=== PATIENT | female | born 1965 | race African-American/Black ===

== ENCOUNTER 2022-10-01 16:29 | Inpatient (IN) | payer MEDICARE, MEDICAID ==
[~2022-10-01] VITALS: Ht 167.6 cm; Wt 96.2 kg
[~2022-10-01 16:29] MED LIST: AMOX1TAB16 MT; SULF1TAB48 MT
[2022-10-01] MEDS ORDERED: SODIUM CHLORIDE 0.9% 1000ML BAG (SEPSIS BOLUS) IV ONE (18:15)
[2022-10-01] MEDS ORDERED: VANCOMYCIN 1G PREMIX 200 ML IV ONE (18:15)
[2022-10-01] MEDS ORDERED: PIPERACILLIN/TAZ 3.375G PREMIX 50 ML IV ONE (18:15)
[2022-10-01] MEDS ORDERED: MORPHINE SULFATE 4 MG/ML CPJ (NOT FOR IM USE) IV STA (18:31)
[2022-10-01] MEDS ORDERED: ONDANSETRON HCL 4MG/2ML INJ IV STA (18:31)
[2022-10-01 21:20] LABS: CLARITY URINE CLOUDY (CLEAR); COLOR URINE DARK YELLOW (YELLOW); KETONES URINE NEGATIVE (NEGATIVE); LEUKOCYTE ESTERASE URINE 1+ (NEGATIVE); NITRITE URINE NEGATIVE (NEGATIVE); OCCULT BLOOD URINE 1+ (NEGATIVE); PH URINE 6.5 (4.5-8.0); PROTEIN URINE 2+ (NEGATIVE); SPECIFIC GRAVITY URINE 1.018 (1.005-1.030)
[2022-10-01 22:14] LABS: BASOPHILS % 0.6 % (0.0-2.0); EOSINOPHILS % 1.6 % (0.0-5.0); HEMATOCRIT. 35.3 % (36.0-48.0); HEMOGLOBIN. 11.3 g/dL (12.0-16.0); LYMPHOCYTES % 11.8 % (20.0-50.0); MEAN CORPUSCULAR HEMOGLOBIN 28.5 pg (28.0-32.0); MEAN CORPUSCULAR VOLUME 89.3 fL (81.0-99.0); MONOCYTES % 7.3 % (2.0-8.0); NEUTROPHILS % 78.7 % (40.0-76.0); PLATELET 452 x1000/uL (130-400); RED BLOOD CELL COUNT 3.95 mill/uL (4.2-5.4); RED CELL DISTRIBUTION WIDTH 15.4 % (11.6-14.6)
[2022-10-01] MEDS ORDERED: LEVOFLOXACIN 250MG TABLET PO ONE (22:15)
[2022-10-01] MEDS ORDERED: MORPHINE SULFATE 4 MG/ML CPJ (NOT FOR IM USE) IV ONE (22:15)
[2022-10-01] MEDS ORDERED: FLUCONAZOLE 50MG TABLET PO ONE (22:15)
[2022-10-01] MEDS ORDERED: FLUCONAZOLE 150MG TABLET PO NR (22:15)
[2022-10-01] MEDS ORDERED: ONDANSETRON HCL 4MG/2ML INJ IM ONE (22:15)
[2022-10-01 22:19] LABS: CHLORIDE 109 mEq/L (98-107)
[2022-10-01 23:39] VITALS: BP 162/86; PULSE 78; RESP 20; TEMP 98.3
[2022-10-01 23:51] VITALS: BP 162/86; PULSE 89; RESP 27; TEMP 98.3
[2022-10-02] VITALS: PULSE 78; RESP 17
[2022-10-02] MEDS ORDERED: BACLOFEN 10MG TABLET PO SCH (00:45)
[2022-10-02] MEDS ORDERED: NALOXONE HCL 0.4MG/ML VIAL IV PRN (00:45)
[2022-10-02] MEDS: GABAPENTIN 300MG CAPSULE PO SCH ×4 (01:03→21:19)
[2022-10-02 01:10] VITALS: BP 113/67; PULSE 100; RESP 18
[2022-10-02] MEDS: HYDROCODONE/ACETAMINOPHEN 5/325MG TABLET PO PRN ×3 (01:51→16:11)
[2022-10-02] MEDS ORDERED: BACLOFEN 10MG TABLET PO NR (02:45)
[2022-10-02 04:00] VITALS: PULSE 85; RESP 14; TEMP 97.4
[2022-10-02 04:47] VITALS: BP 105/58; PULSE 79; RESP 12
[2022-10-02] MEDS ORDERED: LIDOCAINE HCL 1% 10 MG/ML 10ML VIAL ONE (08:39)
[2022-10-02] MEDS ORDERED: LACTULOSE 20G/30ML UDC PO NR (09:00)
[2022-10-02] MEDS: TRAZODONE HCL 50MG TABLET PO SCH (09:19)
[2022-10-02] MEDS ORDERED: POVIDONE-IODINE 10% TOPICAL SOLN 240ML TOP ONE (10:45)
[2022-10-02] MEDS ORDERED: NA PHOS,M-B/NA PHOS,DI-BA ENEMA 118ML PR ONE (11:45)
[2022-10-02] MEDS: SERTRALINE HCL 25MG TABLET PO SCH (16:09)
[2022-10-02] MEDS: LEVOFLOXACIN 500MG TABLET PO SCH (16:12)
[2022-10-02] MEDS: BACLOFEN 10MG TABLET PO SCH ×2 (16:13→21:19)
[2022-10-02] MEDS: AMPICILLIN SOD/SULBACTAM NA 3 G in SODIUM CHLORIDE 0.9% 100 ML IV SCH ×2 (16:16→18:36)
[2022-10-02 20:23] VITALS: BP 117/82; PULSE 98; RESP 14; TEMP 98
[2022-10-03] VITALS (7 sets, daily range): BP systolic 109–132; BP diastolic 34–89; PULSE 74–94; RESP 14–24; TEMP 97.8–98.3; O2SAT 98
[2022-10-03] MEDS: MENTHOL/LANOLIN/CALAMINE/ZN OX OINT 71GM TOP SCH ×2 (00:23→13:04)
[2022-10-03] MEDS: AMPICILLIN SOD/SULBACTAM NA 3 G in SODIUM CHLORIDE 0.9% 100 ML IV SCH ×2 (00:34→05:55)
[2022-10-03] MEDS: BACLOFEN 10MG TABLET PO SCH ×3 (01:08→13:06)
[2022-10-03] MEDS: HYDROCODONE/ACETAMINOPHEN 5/325MG TABLET PO PRN (03:34)
[2022-10-03] MEDS: GABAPENTIN 300MG CAPSULE PO SCH ×2 (06:10→13:06)
[2022-10-03 07:59] LABS: BASOPHILS % 0.6 % (0.0-2.0); EOSINOPHILS % 3.2 % (0.0-5.0); HEMATOCRIT. 31.7 % (36.0-48.0); HEMOGLOBIN. 10.5 g/dL (12.0-16.0); LYMPHOCYTES % 15.1 % (20.0-50.0); MEAN CORPUSCULAR HEMOGLOBIN 29.6 pg (28.0-32.0); MEAN CORPUSCULAR VOLUME 89.3 fL (81.0-99.0); MEAN PLATELET VOLUME 7.4 fl (7.4-10.4); MONOCYTES % 10.6 % (2.0-8.0); NEUTROPHILS % 70.5 % (40.0-76.0); PLATELET 365 x1000/uL (130-400); RED BLOOD CELL COUNT 3.55 mill/uL (4.2-5.4); RED CELL DISTRIBUTION WIDTH 14.9 % (11.6-14.6)
[2022-10-03 08:10] LABS: CHLORIDE 110 mEq/L (98-107)
[2022-10-03] MEDS ORDERED: GABA-532 MT (08:10)
[2022-10-03] MEDS ORDERED: BACL20TA PO (08:10)
[2022-10-03] MEDS: TRAZODONE HCL 50MG TABLET PO SCH (08:28)
[2022-10-03] MEDS: SERTRALINE HCL 25MG TABLET PO SCH (08:28)
[2022-10-03] MEDS ORDERED: POLY17PO3 MT ×2 (09:43)
[2022-10-03] MEDS: LEVOFLOXACIN 500MG TABLET PO SCH (13:04)
== END 2022-10-03 13:55 | disposition home health service (06) | DRG 698 ==
LOC: ER 16:29 → EDBEDREQ 22:22 → EDBEDREQTM 22:22 → 3WST 10-02 00:10
PROVIDERS: ADMIT Internal Medicine; ATTEND Internal Medicine
PROC: 05HY33Z Insertion of Infusion Device into Upper Vein, Percutaneous Approach (ICD-10-PCS; principal; 2022-10-02)
PROC: B54MZZA Ultrasonography of Right Upper Extremity Veins, Guidance (ICD-10-PCS; 2022-10-02)
DX: T83.518A Infection and inflammatory reaction due to other urinary catheter, initial encounter (principal); A41.9 Sepsis, unspecified organism; R65.20 Severe sepsis without septic shock; E44.1 Mild protein-calorie malnutrition; G82.20 Paraplegia, unspecified; N39.0 Urinary tract infection, site not specified; L97.422 Non-pressure chronic ulcer of left heel and midfoot with fat layer exposed; I73.9 Peripheral vascular disease, unspecified; K56.41 Fecal impaction; F17.210 Nicotine dependence, cigarettes, uncomplicated; Z20.822 Contact with and (suspected) exposure to COVID-19; R23.4 Changes in skin texture; I10 Essential (primary) hypertension; L89.150 Pressure ulcer of sacral region, unstageable; L89.890 Pressure ulcer of other site, unstageable; K80.20 Calculus of gallbladder without cholecystitis without obstruction; K21.9 Gastro-esophageal reflux disease without esophagitis; Z79.899 Other long term (current) drug therapy; Z74.01 Bed confinement status; Z68.34 Body mass index [BMI] 34.0-34.9, adult; Z87.440 Personal history of urinary (tract) infections; Y83.9 Surgical procedure, unspecified as the cause of abnormal reaction of the patient, or of later complication, without mention of misadventure at the time of the procedure; Y92.89 Other specified places as the place of occurrence of the external cause
CPT/HCPCS: 36415; 36573; 71045; 73620; 74176; 80048; 80053; 81003; 82040; 82378; 83605; 83880; 84134; 84145; 84484; 85025; 87106; 87426; 93005; 93923; 99285; C1725; J0295; J2270; J2405; J3490; J7030; J7050

== ENCOUNTER 2022-10-09 12:46 | Inpatient (IN) | payer MEDICARE, MEDICAID ==
[~2022-10-09] VITALS: Ht 167.6 cm; Wt 118.8 kg
[~2022-10-09 12:46] MED LIST changes: +BACL20TA PO; +GABA-532 MT; +POLY17PO3 MT
[2022-10-09 12:49] VITALS: O2SAT 98
[2022-10-09] MEDS ORDERED: PIPERACILLIN/TAZ 3.375G PREMIX 50 ML IV ONE (14:15)
[2022-10-09] MEDS ORDERED: VANCOMYCIN 1G PREMIX 200 ML IV ONE (14:15)
[2022-10-09] MEDS ORDERED: SODIUM CHLORIDE 0.9% 1000ML BAG (SEPSIS BOLUS) IV ONE (14:15)
[2022-10-09 15:33] LABS: CLARITY URINE CLEAR (CLEAR); COLOR URINE YELLOW (YELLOW); KETONES URINE NEGATIVE (NEGATIVE); LEUKOCYTE ESTERASE URINE NEGATIVE (NEGATIVE); NITRITE URINE NEGATIVE (NEGATIVE); OCCULT BLOOD URINE NEGATIVE (NEGATIVE); PROTEIN URINE NEGATIVE (NEGATIVE); SPECIFIC GRAVITY URINE 1.016 (1.005-1.030); UROBILINOGEN URINE 0.2 E.U./dL (0.2-1.0)
[2022-10-09 16:20] LABS: BASOPHILS % 0.6 % (0.0-2.0); EOSINOPHILS % 1.2 % (0.0-5.0); HEMATOCRIT. 35.2 % (36.0-48.0); HEMOGLOBIN. 11.5 g/dL (12.0-16.0); LYMPHOCYTES % 12.9 % (20.0-50.0); MEAN CORPUSCULAR HEMOGLOBIN 29.3 pg (28.0-32.0); MEAN CORPUSCULAR VOLUME 89.6 fL (81.0-99.0); MEAN PLATELET VOLUME 6.9 fl (7.4-10.4); MONOCYTES % 6.7 % (2.0-8.0); NEUTROPHILS % 78.6 % (40.0-76.0); PLATELET 380 x1000/uL (130-400); RED BLOOD CELL COUNT 3.93 mill/uL (4.2-5.4); RED CELL DISTRIBUTION WIDTH 15.7 % (11.6-14.6)
[2022-10-09 16:28] LABS: CHLORIDE 107 mEq/L (98-107)
[2022-10-09] MEDS ORDERED: ONDANSETRON HCL 4MG/2ML INJ IV STA (17:55)
[2022-10-09] MEDS ORDERED: MORPHINE SULFATE 4 MG/ML CPJ (NOT FOR IM USE) IV STA (17:55)
[2022-10-09] MEDS ORDERED: MAGNESIUM/ALUMINUM HYDROXIDE/SIMETHICONE 30ML UDC PO PRN (18:45)
[2022-10-09] MEDS ORDERED: ONDANSETRON HCL 4MG/2ML INJ IV PRN (18:45)
[2022-10-09] MEDS ORDERED: ACETAMINOPHEN 325MG TABLET PO PRN (18:45)
[2022-10-09] MEDS ORDERED: CLONIDINE 0.1MG TABLET PO PRN (18:45)
[2022-10-09] MEDS ORDERED: IPRATROPIUM/ALBUTEROL 0.5-3(2.5)MG/3ML NEB NEB PRN (18:45)
[2022-10-09] MEDS ORDERED: NALOXONE HCL 0.4MG/ML VIAL IV PRN (19:00)
[2022-10-09] MEDS ORDERED: BACLOFEN 10MG TABLET PO SCH (21:16)
[2022-10-09] MEDS: ENOXAPARIN 30MG/0.3ML SYR SUBCUT SCH (22:11)
[2022-10-09] MEDS: TIZANIDINE HCL 2MG TABLET PO PRN (22:11)
[2022-10-09] MEDS: GABAPENTIN 400MG CAPSULE PO SCH (22:11)
[2022-10-10] VITALS (7 sets, daily range): BP systolic 98–116; BP diastolic 55–81; PULSE 60–85; RESP 18–20; TEMP 96.4–97.9
[2022-10-10] MEDS: HYDROCODONE/ACETAMINOPHEN 5/325MG TABLET PO PRN ×3 (01:35→16:01)
[2022-10-10] MEDS ORDERED: TIZA-204 PO (01:44)
[2022-10-10] MEDS ORDERED: GABA800T97 PO (01:44)
[2022-10-10] MEDS ORDERED: BACL-141 PO (01:44)
[2022-10-10] MEDS: TIZANIDINE HCL 2MG TABLET PO PRN ×4 (03:55→23:43)
[2022-10-10] MEDS ORDERED: MEDICATION NOT ON FORMULARY EA (Gabapentin 800 MG) PO SCH (09:00)
[2022-10-10] MEDS ORDERED: TIZANIDINE HCL 8 MG PO SCH (09:00)
[2022-10-10] MEDS: GABAPENTIN 400MG CAPSULE PO SCH ×4 (09:05→22:36)
[2022-10-10] MEDS: BACLOFEN 10MG TABLET PO SCH ×4 (09:06→22:37)
[2022-10-10] MEDS: ENOXAPARIN 30MG/0.3ML SYR SUBCUT SCH ×2 (09:06→20:58)
[2022-10-10 11:18] LABS: BASOPHILS % 0.6 % (0.0-2.0); EOSINOPHILS % 1.4 % (0.0-5.0); HEMATOCRIT. 32.5 % (36.0-48.0); HEMOGLOBIN. 10.8 g/dL (12.0-16.0); LYMPHOCYTES % 11.6 % (20.0-50.0); MEAN CORPUSCULAR HEMOGLOBIN 29.5 pg (28.0-32.0); MEAN CORPUSCULAR VOLUME 88.8 fL (81.0-99.0); MEAN PLATELET VOLUME 7.2 fl (7.4-10.4); MONOCYTES % 6.9 % (2.0-8.0); NEUTROPHILS % 79.5 % (40.0-76.0); PLATELET 376 x1000/uL (130-400); RED BLOOD CELL COUNT 3.66 mill/uL (4.2-5.4); RED CELL DISTRIBUTION WIDTH 15.8 % (11.6-14.6)
[2022-10-10 16:36] LABS: HEPATITIS B SURFACE ANTIGEN NEGATIVE
[2022-10-10] MEDS: HYDROCODONE/ACETAMINOPHEN 10/325MG TABLET PO PRN (20:57)
[2022-10-11 03:41] VITALS: BP 112/49; PULSE 68; RESP 19; TEMP 97.5
[2022-10-11] MEDS: HYDROCODONE/ACETAMINOPHEN 10/325MG TABLET PO PRN ×2 (03:42→09:00)
[2022-10-11] MEDS: TIZANIDINE HCL 2MG TABLET PO PRN (06:00)
[2022-10-11 06:44] LABS: BASOPHILS % 0.8 % (0.0-2.0); EOSINOPHILS % 2.5 % (0.0-5.0); HEMATOCRIT. 31.4 % (36.0-48.0); HEMOGLOBIN. 10.2 g/dL (12.0-16.0); LYMPHOCYTES % 16.2 % (20.0-50.0); MEAN CORPUSCULAR HEMOGLOBIN 28.6 pg (28.0-32.0); MEAN CORPUSCULAR VOLUME 88.4 fL (81.0-99.0); MEAN PLATELET VOLUME 7.1 fl (7.4-10.4); NEUTROPHILS % 71.5 % (40.0-76.0); PLATELET 355 x1000/uL (130-400); RED BLOOD CELL COUNT 3.56 mill/uL (4.2-5.4); RED CELL DISTRIBUTION WIDTH 15.5 % (11.6-14.6)
[2022-10-11 06:54] LABS: CHLORIDE 107 mEq/L (98-107)
[2022-10-11 06:58] LABS: PHOSPHORUS 2.6 mg/dL (2.5-4.9)
[2022-10-11 08:00] VITALS: BP 117/75; PULSE 70; RESP 18; TEMP 97.7
[2022-10-11] MEDS: BACLOFEN 10MG TABLET PO SCH ×4 (08:19→21:12)
[2022-10-11] MEDS: GABAPENTIN 400MG CAPSULE PO SCH ×4 (08:19→21:13)
[2022-10-11] MEDS: ENOXAPARIN 40MG/0.4ML SYR SUBCUT SCH (08:19)
[2022-10-11 12:00] VITALS: BP 99/66; PULSE 73; RESP 20; TEMP 97.6
[2022-10-11] MEDS: HYDROXYZINE 25MG TABLET PO PRN (12:44)
[2022-10-11] MEDS ORDERED: LORAZEPAM 2MG/ML CPJ IV PRN (15:30)
[2022-10-11 16:00] VITALS: BP 121/65; PULSE 115; RESP 20; TEMP 97.3
[2022-10-11] MEDS: HALOPERIDOL LACTATE 5MG/ML VIAL IM PRN (16:56)
[2022-10-11] MEDS ORDERED: DIPHENHYDRAMINE 50MG/ML VIAL IV PRN (17:15)
[2022-10-11] MEDS: LORAZEPAM 2MG/ML CPJ IV PRN (19:52)
[2022-10-11 20:00] VITALS: BP 139/81; PULSE 135; RESP 20; TEMP 98.6
[2022-10-12] VITALS: BP 146/86; PULSE 100; RESP 18; TEMP 98
[2022-10-12 04:00] VITALS: BP 144/89; PULSE 110; RESP 18; TEMP 97.8
[2022-10-12] MEDS: TRAMADOL 50MG TABLET PO PRN ×2 (04:27→11:45)
[2022-10-12 08:00] VITALS: BP 118/66; PULSE 112; RESP 16; RESP 18; TEMP 97.5; TEMP 98
[2022-10-12] MEDS: HALOPERIDOL LACTATE 5MG/ML VIAL IM PRN ×2 (08:11→19:35)
[2022-10-12] MEDS: GABAPENTIN 400MG CAPSULE PO SCH ×4 (08:11→20:50)
[2022-10-12] MEDS: BACLOFEN 10MG TABLET PO SCH ×4 (08:11→20:50)
[2022-10-12] MEDS: ENOXAPARIN 40MG/0.4ML SYR SUBCUT SCH (08:12)
[2022-10-12] MEDS: LORAZEPAM 2MG/ML CPJ IV PRN ×3 (09:54→20:03)
[2022-10-12 10:40] LABS: BASOPHILS % 0.7 % (0.0-2.0); EOSINOPHILS % 0.5 % (0.0-5.0); HEMATOCRIT. 32.9 % (36.0-48.0); HEMOGLOBIN. 10.7 g/dL (12.0-16.0); LYMPHOCYTES % 14.8 % (20.0-50.0); MEAN CORPUSCULAR HEMOGLOBIN 29.1 pg (28.0-32.0); MEAN CORPUSCULAR VOLUME 89.3 fL (81.0-99.0); MEAN PLATELET VOLUME 7.7 fl (7.4-10.4); MONOCYTES % 8.7 % (2.0-8.0); NEUTROPHILS % 75.3 % (40.0-76.0); PLATELET 388 x1000/uL (130-400); RED BLOOD CELL COUNT 3.68 mill/uL (4.2-5.4); RED CELL DISTRIBUTION WIDTH 15.3 % (11.6-14.6)
[2022-10-12 10:50] LABS: CHLORIDE 107 mEq/L (98-107)
[2022-10-12 10:54] LABS: PHOSPHORUS 2.4 mg/dL (2.5-4.9)
[2022-10-12 12:00] VITALS: BP 141/72; PULSE 105; RESP 18; TEMP 98.2
[2022-10-12] MEDS: POVIDONE-IODINE 10% TOPICAL SOLN 240ML TOP SCH (15:00)
[2022-10-12 16:00] VITALS: BP 121/74; PULSE 99; RESP 18; TEMP 97.6
[2022-10-12 20:00] VITALS: BP 111/65; PULSE 62; RESP 18; TEMP 98
[2022-10-12] MEDS: QUETIAPINE FUMARATE 50MG TABLET PO SCH (20:50)
[2022-10-13] VITALS: BP 139/80; PULSE 78; RESP 20; TEMP 97
[2022-10-13] MEDS: HYDROXYZINE 25MG TABLET PO PRN (01:04)
[2022-10-13] MEDS: TRAMADOL 50MG TABLET PO PRN ×2 (01:07→09:33)
[2022-10-13] MEDS: HALOPERIDOL LACTATE 5MG/ML VIAL IM PRN ×4 (01:24→23:01)
[2022-10-13] MEDS ORDERED: DIPHENHYDRAMINE 50MG/ML VIAL IV NR (01:45)
[2022-10-13 04:00] VITALS: BP 121/71; PULSE 67; RESP 20; TEMP 98.2
[2022-10-13] MEDS: LORAZEPAM 2MG/ML CPJ IV PRN ×2 (05:46→21:50)
[2022-10-13 08:00] VITALS: BP 137/75; PULSE 106; RESP 18; TEMP 98.1
[2022-10-13] MEDS: BACLOFEN 10MG TABLET PO SCH ×3 (09:27→16:38)
[2022-10-13] MEDS: QUETIAPINE FUMARATE 50MG TABLET PO SCH ×2 (09:28→21:50)
[2022-10-13] MEDS: GABAPENTIN 400MG CAPSULE PO SCH ×4 (09:28→21:50)
[2022-10-13] MEDS: ENOXAPARIN 40MG/0.4ML SYR SUBCUT SCH (09:29)
[2022-10-13] MEDS: POVIDONE-IODINE 10% TOPICAL SOLN 240ML TOP SCH (09:30)
[2022-10-13 12:00] VITALS: BP 131/68; PULSE 89; RESP 18; TEMP 98.4
[2022-10-14] MEDS: BACLOFEN 10MG TABLET PO SCH ×5 (00:55→20:16)
[2022-10-14] MEDS: TRAMADOL 50MG TABLET PO PRN ×2 (01:37→18:22)
[2022-10-14] MEDS: LORAZEPAM 2MG/ML CPJ IV PRN ×2 (05:56→19:45)
[2022-10-14 08:00] VITALS: BP 139/71; PULSE 64; PULSE 83; RESP 20; TEMP 98.2; TEMP 98.8
[2022-10-14] MEDS: GABAPENTIN 400MG CAPSULE PO SCH ×4 (09:00→20:16)
[2022-10-14] MEDS: POVIDONE-IODINE 10% TOPICAL SOLN 240ML TOP SCH (09:00)
[2022-10-14 09:05] LABS: BASOPHILS % 0.8 % (0.0-2.0); EOSINOPHILS % 1.9 % (0.0-5.0); HEMATOCRIT. 31.1 % (36.0-48.0); HEMOGLOBIN. 10.1 g/dL (12.0-16.0); LYMPHOCYTES % 21.2 % (20.0-50.0); MEAN CORPUSCULAR VOLUME 88.9 fL (81.0-99.0); MEAN PLATELET VOLUME 7.2 fl (7.4-10.4); MONOCYTES % 11.1 % (2.0-8.0); PLATELET 430 x1000/uL (130-400); RED CELL DISTRIBUTION WIDTH 15.2 % (11.6-14.6)
[2022-10-14] MEDS: QUETIAPINE FUMARATE 50MG TABLET PO SCH ×2 (10:01→20:15)
[2022-10-14] MEDS: ENOXAPARIN 40MG/0.4ML SYR SUBCUT SCH (10:13)
[2022-10-14] MEDS: HALOPERIDOL LACTATE 5MG/ML VIAL IM PRN ×2 (11:36→19:45)
[2022-10-14 12:00] VITALS: BP 139/71; PULSE 83; RESP 20; TEMP 98.8
[2022-10-14] MEDS ORDERED: HYDR-3735 PO (12:53)
[2022-10-14] MEDS ORDERED: QUET50TA PO (12:53)
[2022-10-14] MEDS ORDERED: TRAM50TA3 PO (12:53)
[2022-10-14 16:00] VITALS: BP 104/63; PULSE 110; RESP 20; TEMP 97.9
[2022-10-14 20:00] VITALS: BP 113/65; PULSE 108; RESP 21; TEMP 98.7
[2022-10-15] VITALS: RESP 16
[2022-10-15] MEDS: TRAMADOL 50MG TABLET PO PRN ×2 (00:58→11:09)
[2022-10-15 04:00] VITALS: RESP 20
[2022-10-15] MEDS: HALOPERIDOL LACTATE 5MG/ML VIAL IM PRN ×3 (04:04→21:14)
[2022-10-15] MEDS: LORAZEPAM 2MG/ML CPJ IV PRN ×3 (04:04→18:37)
[2022-10-15 05:23] VITALS: PULSE 83; RESP 20
[2022-10-15] MEDS: POVIDONE-IODINE 10% TOPICAL SOLN 240ML TOP SCH (09:00)
[2022-10-15 12:00] VITALS: BP 116/70; PULSE 102; RESP 19; TEMP 98.1
[2022-10-15] MEDS: GABAPENTIN 400MG CAPSULE PO SCH ×3 (13:03→20:54)
[2022-10-15] MEDS: BACLOFEN 10MG TABLET PO SCH ×3 (13:03→20:53)
[2022-10-15] MEDS: QUETIAPINE FUMARATE 200MG TABLET PO SCH ×2 (13:05→20:54)
[2022-10-15] MEDS: ENOXAPARIN 40MG/0.4ML SYR SUBCUT SCH (13:09)
[2022-10-15 16:00] VITALS: BP 112/71; PULSE 95; RESP 18; TEMP 98
[2022-10-16] VITALS: BP 97/57; PULSE 121; RESP 20; TEMP 98.4
[2022-10-16] MEDS: LORAZEPAM 2MG/ML CPJ IV PRN ×2 (00:44→19:55)
[2022-10-16 04:00] VITALS: BP 115/59; PULSE 101; RESP 20; TEMP 98.4
[2022-10-16 08:00] VITALS: BP 105/56; PULSE 109; RESP 19; TEMP 100.4
[2022-10-16] MEDS: GABAPENTIN 400MG CAPSULE PO SCH ×3 (08:05→20:02)
[2022-10-16] MEDS: ACETAMINOPHEN 325MG TABLET PO PRN ×2 (08:05→14:20)
[2022-10-16] MEDS: QUETIAPINE FUMARATE 200MG TABLET PO SCH ×2 (08:05→20:03)
[2022-10-16] MEDS: ENOXAPARIN 40MG/0.4ML SYR SUBCUT SCH (08:06)
[2022-10-16] MEDS: BACLOFEN 10MG TABLET PO SCH ×3 (09:00→20:04)
[2022-10-16] MEDS: POVIDONE-IODINE 10% TOPICAL SOLN 240ML TOP SCH (09:00)
[2022-10-16] MEDS ORDERED: ALPRAZOLAM 0.5 MG TABLET PO PRN (10:00)
[2022-10-16 12:00] VITALS: BP 100/58; PULSE 92; RESP 19; TEMP 98.2
[2022-10-16] MEDS: HALOPERIDOL LACTATE 5MG/ML VIAL IM PRN ×2 (15:16→22:31)
[2022-10-16 16:00] VITALS: BP 111/66; PULSE 98; RESP 19; TEMP 98.2
[2022-10-16 17:35] LABS: EOSINOPHILS % 2.7 % (0.0-5.0); HEMOGLOBIN. 10.3 g/dL (12.0-16.0); LYMPHOCYTES % 22.1 % (20.0-50.0); MEAN CORPUSCULAR HEMOGLOBIN 29.2 pg (28.0-32.0); MEAN PLATELET VOLUME 7.3 fl (7.4-10.4); MONOCYTES % 12.1 % (2.0-8.0); NEUTROPHILS % 62.1 % (40.0-76.0); PLATELET 456 x1000/uL (130-400); RED BLOOD CELL COUNT 3.53 mill/uL (4.2-5.4); RED CELL DISTRIBUTION WIDTH 15.4 % (11.6-14.6)
[2022-10-16 17:52] LABS: CHLORIDE 105 mEq/L (98-107)
[2022-10-16 20:00] VITALS: BP 136/75; PULSE 92; RESP 16; TEMP 98
[2022-10-17] MEDS: LORAZEPAM 2MG/ML CPJ IV PRN (03:33)
[2022-10-17] MEDS: TIZANIDINE HCL 2MG TABLET PO PRN (03:41)
[2022-10-17] MEDS: ENOXAPARIN 40MG/0.4ML SYR SUBCUT SCH (08:08)
[2022-10-17] MEDS: GABAPENTIN 400MG CAPSULE PO SCH ×4 (08:09→21:00)
[2022-10-17] MEDS: QUETIAPINE FUMARATE 200MG TABLET PO SCH ×2 (08:09→20:59)
[2022-10-17] MEDS: ACETAMINOPHEN 325MG TABLET PO PRN (08:10)
[2022-10-17] MEDS: BACLOFEN 10MG TABLET PO SCH ×4 (08:11→20:59)
[2022-10-17] MEDS: POVIDONE-IODINE 10% TOPICAL SOLN 240ML TOP SCH (09:00)
[2022-10-17 12:00] VITALS: BP 98/59; PULSE 87; RESP 19; TEMP 98.1
[2022-10-17] MEDS ORDERED: GABA-532 PO (13:23)
[2022-10-17] MEDS ORDERED: TIZA-204 PO (13:23)
[2022-10-17] MEDS ORDERED: ALPR-393 MT (13:23)
[2022-10-17] MEDS ORDERED: QUET200T30 PO (13:23)
[2022-10-17] MEDS: HALOPERIDOL LACTATE 5MG/ML VIAL IM PRN ×2 (15:41→22:05)
[2022-10-17 16:00] VITALS: BP 114/71; PULSE 95; RESP 19; TEMP 97.9
[2022-10-17] MEDS ORDERED: ALPRAZOLAM 0.5 MG TABLET PO PRN (17:30)
[2022-10-17 20:00] VITALS: BP 120/85; PULSE 92; RESP 16; TEMP 98
[2022-10-18] MEDS ORDERED: ALPR-341 MT ×2 (00:33→00:39)
== END 2022-10-17 22:00 | DRG 580 ==
LOC: ER 12:46 → 8WST 17:55 → EDBEDREQTM 17:59 → EDBEDREQ 17:59 → SUPCPDRO 18:00 → ENRESERV 21:54 → 8WST 10-10 00:17 → 6WST 10-13 12:11 → 6EST 10-15 09:43
PROVIDERS: ADMIT Internal Medicine; ATTEND Internal Medicine
PROC: 02HV33Z Insertion of Infusion Device into Superior Vena Cava, Percutaneous Approach (ICD-10-PCS; 2022-10-09)
PROC: B548ZZA Ultrasonography of Superior Vena Cava, Guidance (ICD-10-PCS; 2022-10-09)
PROC: 0KBN0ZZ Excision of Right Hip Muscle, Open Approach (ICD-10-PCS; principal; 2022-10-13)
DX: L89.154 Pressure ulcer of sacral region, stage 4 (principal); E44.0 Moderate protein-calorie malnutrition; G82.20 Paraplegia, unspecified; L97.422 Non-pressure chronic ulcer of left heel and midfoot with fat layer exposed; Z68.41 Body mass index [BMI] 40.0-44.9, adult; N39.0 Urinary tract infection, site not specified; I73.9 Peripheral vascular disease, unspecified; D72.829 Elevated white blood cell count, unspecified; D64.9 Anemia, unspecified; L89.893 Pressure ulcer of other site, stage 3; I10 Essential (primary) hypertension; F39 Unspecified mood [affective] disorder; L98.492 Non-pressure chronic ulcer of skin of other sites with fat layer exposed; Z74.01 Bed confinement status; Z87.440 Personal history of urinary (tract) infections
CPT/HCPCS: 36415; 36573; 71045; 80048; 80053; 81003; 82040; 83605; 83735; 84100; 84134; 84145; 84484; 85025; 86803; 87106; 87340; 93005; 97162; 99285; C1725; C1769; J1200; J1630; J1650; J2060; J2270; J2405; J2543; J3370; J7030

== ENCOUNTER 2023-07-19 14:20 | Inpatient (IN) | payer MEDICARE, MEDICAID ==
[~2023-07-19] VITALS: Ht 165.1 cm; Wt 71.2 kg
[~2023-07-19 14:20] MED LIST changes: +ALPR-341 MT; -AMOX1TAB16 MT; -BACL20TA PO; -GABA-532 MT; +GABA-532 PO; +HYDR-3735 PO; -POLY17PO3 MT; +QUET200T30 PO; +SERT25TA74 PO; -SULF1TAB48 MT; +TIZA-204 PO; +TRAM50TA3 PO
[2023-07-19 15:38] LABS: CLARITY URINE CLOUDY (CLEAR); COLOR URINE YELLOW (YELLOW); GLUCOSE URINE NEGATIVE (NEGATIVE); KETONES URINE NEGATIVE (NEGATIVE); LEUKOCYTE ESTERASE URINE 3+ (NEGATIVE); NITRITE URINE POSITIVE (NEGATIVE); OCCULT BLOOD URINE NEGATIVE (NEGATIVE); PROTEIN URINE 1+ (NEGATIVE); SPECIFIC GRAVITY URINE 1.018 (1.005-1.030)
[2023-07-19] MEDS: DIPHENHYDRAMINE 50MG/ML VIAL IM PRN (15:38)
[2023-07-19] MEDS: HALOPERIDOL LACTATE 5MG/ML VIAL IM ONE (15:38)
[2023-07-19 15:57] LABS: BACTERIA URINE 4+; SQUAMOUS EPITHELIAL CELL URINE 1+ /lpf (RARE/1+)
[2023-07-19 15:58] LABS: RBC URINE 0-2 /hpf (0-2); WBC URINE TNTC /hpf (0-2)
[2023-07-19] MEDS: SODIUM CHLORIDE 0.9% 1,000 ML IV ONE (16:21)
[2023-07-19 16:31] LABS: HEMATOCRIT. 25.2 % (36.0-48.0); HEMOGLOBIN. 7.7 g/dL (12.0-16.0); MEAN CORPUSCULAR HEMOGLOBIN 21.7 pg (28.0-32.0); MEAN CORPUSCULAR HGB CONC 30.6 g/dL (31.0-37.0); MEAN CORPUSCULAR VOLUME 70.9 fL (81.0-99.0); MEAN PLATELET VOLUME 6.1 fl (7.4-10.4); RED BLOOD CELL COUNT 3.55 mill/uL (4.2-5.4); WHITE BLOOD COUNT 19.3 x1000/uL (4.5-11.0)
[2023-07-19] MEDS: MIDAZOLAM HCL 2 MG/2 ML VIAL IV ONE (16:32)
[2023-07-19] MEDS: CEFTRIAXONE 1GM/50ML 50 ML IV NR (16:33)
[2023-07-19 16:36] LABS: CHLORIDE 104 mEq/L (98-107); DIFFERENTIAL COMMENT 1; PLATELET 1335 x1000/uL (130-400); POTASSIUM 5.1 mEq/L (3.5-5.1); SODIUM 135 mEq/L (136-145)
[2023-07-19 16:37] LABS: CARBON DIOXIDE 24 mEq/L (21-32)
[2023-07-19 16:38] LABS: CALCIUM 8.2 mg/dL (8.7-10.4)
[2023-07-19 16:42] LABS: CREATININE 0.7 mg/dL (0.6-1.0)
[2023-07-19 16:43] LABS: GLUCOSE 78 mg/dL (70-105); UREA NITROGEN BLOOD 9 mg/dL (9-23)
[2023-07-19 16:44] LABS: ALANINE AMINOTRANSFERASE 15 IU/L (10-49); AMMONIA 17 uMol/L (<32); ASPARTATE AMINOTRANSFERASE 20 IU/L (<34)
[2023-07-19 16:45] LABS: ACETAMINOPHEN < 2 ug/mL (10-30); ALBUMIN 3.2 g/dL (3.2-4.8); BILIRUBIN TOTAL 0.2 mg/dL (0.1-1.0); PROTEIN TOTAL 8.7 g/dL (6.0-8.3)
[2023-07-19 16:54] LABS: ETHANOL BLOOD < 10 mg/dL (<10); TROPONIN I HIGH SENSITIVITY < 4 ng/L (3.0-34)
[2023-07-19 17:16] LABS: ANISOCYTOSIS 2+; HYPOCHROMASIA 2+; MICROCYTOSIS 2+; PLATELET ESTIMATE MARKEDLY INCREASED
[2023-07-19] MEDS ORDERED: ACETAMINOPHEN 325MG TABLET PO PRN ×2 (19:15)
[2023-07-19] MEDS ORDERED: CLONIDINE 0.1MG TABLET PO PRN (19:15)
[2023-07-19] MEDS ORDERED: ONDANSETRON HCL 4MG/2ML INJ IV PRN (19:15)
[2023-07-19] MEDS: DEXT 5%/0.45% NACL 1000ML 1,000 ML IV SCH (20:27)
[2023-07-19] MEDS: ENOXAPARIN 40MG/0.4ML SYR SUBCUT SCH (20:28)
[2023-07-19] MEDS: MEROPENEM 500MG/50ML 50 ML IV SCH (21:12)
[2023-07-19] MEDS: ASCORBIC ACID 500 MG TABLET PO SCH (21:12)
[2023-07-19] MEDS: QUETIAPINE FUMARATE 50MG TABLET PO SCH (21:12)
[2023-07-19] MEDS: PANTOPRAZOLE 40MG DR TABLET PO SCH (21:12)
[2023-07-19] MEDS: NORTRIPTYLINE HCL 25MG CAPSULE PO SCH (21:12)
[2023-07-19] MEDS: GABAPENTIN 300MG CAPSULE PO SCH (21:13)
[2023-07-19] MEDS: BACLOFEN 10MG TABLET PO SCH (21:13)
[2023-07-20] VITALS (10 sets, daily range): BP systolic 80–120; BP diastolic 50–80; PULSE 100–114; RESP 17–20; TEMP 97–99.3
[2023-07-20] MEDS: TIZANIDINE HCL 2MG TABLET PO PRN (02:54)
[2023-07-20] MEDS: MULTIVITAMINS,THER W-MINERALS TABLET PO SCH (09:13)
[2023-07-20] MEDS: CALCIUM 1250MG TABLET (500MG ELEMENTAL CALCIUM) PO SCH (09:13)
[2023-07-20] MEDS: FERROUS SULFATE 325MG TABLET PO SCH (09:13)
[2023-07-20] MEDS: DULOXETINE HCL 60MG DR CAPSULE PO SCH (09:13)
[2023-07-20] MEDS: DOCUSATE SODIUM 250MG CAPSULE PO SCH (09:13)
[2023-07-20 09:23] LABS: CHLORIDE 105 mEq/L (98-107); POTASSIUM 4.1 mEq/L (3.5-5.1); SODIUM 134 mEq/L (136-145)
[2023-07-20 09:24] LABS: CALCIUM 7.6 mg/dL (8.7-10.4); CARBON DIOXIDE 22 mEq/L (21-32)
[2023-07-20 09:29] LABS: CREATININE 0.6 mg/dL (0.6-1.0); GLUCOSE 133 mg/dL (70-105); UREA NITROGEN BLOOD 8 mg/dL (9-23)
[2023-07-20 09:30] LABS: BASOPHILS % 0.9 % (0.0-2.0); EOSINOPHILS % 0.6 % (0.0-5.0); LYMPHOCYTES % 8.6 % (20.0-50.0); MEAN CORPUSCULAR HEMOGLOBIN 20.3 pg (28.0-32.0); MEAN CORPUSCULAR HGB CONC 28.1 g/dL (31.0-37.0); MEAN PLATELET VOLUME 6.4 fl (7.4-10.4); MONOCYTES % 5.5 % (2.0-8.0); NEUTROPHILS % 84.4 % (40.0-76.0); RED BLOOD CELL COUNT 2.96 mill/uL (4.2-5.4); RED CELL DISTRIBUTION WIDTH 21.6 % (11.6-14.6); WHITE BLOOD COUNT 17.3 x1000/uL (4.5-11.0)
[2023-07-20 09:31] LABS: PHOSPHORUS 2.4 mg/dL (2.5-4.9)
[2023-07-20 10:01] LABS: DIFFERENTIAL COMMENT 1
[2023-07-20 10:02] LABS: HEMATOCRIT. 21.3 % (36.0-48.0)
[2023-07-20 10:03] LABS: ADD RBC MORPHOLOGY YES; PLATELET 1000 x1000/uL (130-400)
[2023-07-20 10:22] LABS: ANISOCYTOSIS 3+; MICROCYTOSIS 2+; PLATELET ESTIMATE MARKEDLY INCREASED
[2023-07-20 10:23] LABS: HYPOCHROMASIA 1+
[2023-07-20 12:34] LABS: HEMOGLOBIN 5.7 g/dL (12.0-16.0)
[2023-07-20 12:42] LABS: LACTIC ACID 2.4 mmol/L (0.4-2.0)
[2023-07-20] MEDS: MEROPENEM 1G/100ML IV SCH (14:09)
[2023-07-20] MEDS: IRON SUCROSE COMPLEX 100 MG/5 ML ML IV SCH (21:12)
[2023-07-21] VITALS: BP 101/67; PULSE 104; RESP 20; TEMP 98.1
[2023-07-21 00:33] LABS: HEMATOCRIT 24.5 % (36.0-48.0); HEMOGLOBIN 7.7 g/dL (12.0-16.0)
[2023-07-21 04:00] VITALS: BP 121/76; PULSE 107; RESP 19; TEMP 98
[2023-07-21 07:13] LABS: CHLORIDE 105 mEq/L (98-107); POTASSIUM 3.9 mEq/L (3.5-5.1); SODIUM 136 mEq/L (136-145)
[2023-07-21 07:14] LABS: CARBON DIOXIDE 25 mEq/L (21-32)
[2023-07-21 07:16] LABS: HEMATOCRIT 24.3 % (36.0-48.0); HEMOGLOBIN 7.5 g/dL (12.0-16.0); MEAN CORPUSCULAR HEMOGLOBIN 22.4 pg (28.0-32.0); MEAN CORPUSCULAR HGB CONC 30.9 g/dL (31.0-37.0); MEAN CORPUSCULAR VOLUME 72.5 fL (81.0-99.0); RED BLOOD CELL COUNT 3.36 mill/uL (4.2-5.4); RED CELL DISTRIBUTION WIDTH 21.7 % (11.6-14.6); WHITE BLOOD COUNT 11.8 x1000/uL (4.5-11.0)
[2023-07-21 07:19] LABS: CREATININE 0.5 mg/dL (0.6-1.0); GLUCOSE 55 mg/dL (70-105); UREA NITROGEN BLOOD 7 mg/dL (9-23)
[2023-07-21 08:00] VITALS: BP 105/71; PULSE 110; RESP 18; TEMP 97.8
[2023-07-21 09:03] LABS: PLATELET 1003 x1000/uL (130-400)
[2023-07-21 12:00] VITALS: BP 113/77; PULSE 103; RESP 18; TEMP 96
[2023-07-21 12:32] LABS: IRON 59 ug/dL (50-170)
[2023-07-21 12:35] LABS: TOTAL IRON BINDING CAPACITY 342 ug/dl (250-425)
[2023-07-21 16:00] VITALS: BP 110/70; PULSE 105; RESP 18; TEMP 97.5
[2023-07-21 20:00] VITALS: BP 122/75; PULSE 105; RESP 19; TEMP 97.9
[2023-07-22] VITALS: BP 104/67; PULSE 106; RESP 19; TEMP 98.1
[2023-07-22 06:42] LABS: HEMATOCRIT 24.3 % (36.0-48.0); HEMOGLOBIN 7.6 g/dL (12.0-16.0); MEAN CORPUSCULAR HEMOGLOBIN 22.7 pg (28.0-32.0); MEAN CORPUSCULAR HGB CONC 31.1 g/dL (31.0-37.0); MEAN CORPUSCULAR VOLUME 72.9 fL (81.0-99.0); PLATELET 997 x1000/uL (130-400); RED BLOOD CELL COUNT 3.33 mill/uL (4.2-5.4); RED CELL DISTRIBUTION WIDTH 22.3 % (11.6-14.6)
[2023-07-22 07:04] LABS: CHLORIDE 104 mEq/L (98-107); POTASSIUM 3.9 mEq/L (3.5-5.1); SODIUM 135 mEq/L (136-145)
[2023-07-22 07:05] LABS: CARBON DIOXIDE 23 mEq/L (21-32)
[2023-07-22 07:10] LABS: CREATININE 0.5 mg/dL (0.6-1.0); GLUCOSE 96 mg/dL (70-105); UREA NITROGEN BLOOD 6 mg/dL (9-23)
[2023-07-22 08:00] VITALS: BP 107/78; PULSE 82; RESP 16; TEMP 98.4
[2023-07-22] MEDS: SODIUM HYPOCHLORITE 0.125% 473ML SOLUTION TOP SCH (11:45)
[2023-07-22 12:00] VITALS: BP 90/62; PULSE 115; RESP 17; TEMP 98.1
[2023-07-22 16:00] VITALS: BP 100/66; PULSE 104; RESP 18; TEMP 97.7
[2023-07-22 20:00] VITALS: BP 124/77; RESP 18; TEMP 99.1
[2023-07-23] VITALS (7 sets, daily range): BP systolic 111–142; BP diastolic 73–88; PULSE 69–102; RESP 18–20; TEMP 97.7–98.9; O2SAT 100
[2023-07-23] MEDS: DIPHENHYDRAMINE 50MG/ML VIAL IV PRN (21:02)
[2023-07-23] MEDS: TIZANIDINE HCL 2MG TABLET PO PRN (21:02)
[2023-07-23 22:11] LABS: CHLORIDE 102 mEq/L (98-107); POTASSIUM 4.5 mEq/L (3.5-5.1); SODIUM 133 mEq/L (136-145)
[2023-07-23 22:12] LABS: CALCIUM 8.9 mg/dL (8.7-10.4); CARBON DIOXIDE 26 mEq/L (21-32)
[2023-07-23 22:17] LABS: CREATININE 0.5 mg/dL (0.6-1.0); GLUCOSE 60 mg/dL (70-105); UREA NITROGEN BLOOD < 5 mg/dL (9-23)
[2023-07-24] VITALS: BP 116/77; PULSE 86; RESP 19; TEMP 98.8
[2023-07-24] MEDS: ZOLPIDEM TARTRATE 5MG TABLET PO PRN (00:07)
[2023-07-24 04:00] VITALS: BP 96/63; PULSE 67; RESP 18; TEMP 97.2
[2023-07-24] MEDS ORDERED: NALOXONE HCL 0.4MG/ML VIAL IV PRN (08:45)
[2023-07-24] MEDS ORDERED: LIDOCAINE HCL 1% 10 MG/ML 10ML VIAL ONE (09:28)
[2023-07-24] MEDS: TRAMADOL HCL/ACETAMINOPHEN 37.5/325MG TABLET PO PRN (09:56)
[2023-07-24 16:00] VITALS: BP 92/53; PULSE 115; RESP 20; TEMP 97.7
[2023-07-24 16:33] VITALS: BP 96/63; PULSE 67; RESP 18
== END 2023-07-24 18:00 | DRG 853 ==
LOC: ER 14:20 → 6WST 16:49 → EDBEDREQSVC 16:56 → EDBEDREQ 16:56 → EDBEDREQTM 16:56
PROVIDERS: ADMIT Internal Medicine; ATTEND Internal Medicine
PROC: 30233N1 Transfusion of Nonautologous Red Blood Cells into Peripheral Vein, Percutaneous Approach (ICD-10-PCS; 2023-07-20)
PROC: 0KBN0ZZ Excision of Right Hip Muscle, Open Approach (ICD-10-PCS; principal; 2023-07-23)
PROC: 0KBP0ZZ Excision of Left Hip Muscle, Open Approach (ICD-10-PCS; 2023-07-23)
PROC: 02HV33Z Insertion of Infusion Device into Superior Vena Cava, Percutaneous Approach (ICD-10-PCS; 2023-07-24)
PROC: B548ZZA Ultrasonography of Superior Vena Cava, Guidance (ICD-10-PCS; 2023-07-24)
DX: A41.9 Sepsis, unspecified organism (principal); L89.154 Pressure ulcer of sacral region, stage 4; L89.894 Pressure ulcer of other site, stage 4; G82.20 Paraplegia, unspecified; N39.0 Urinary tract infection, site not specified; J44.9 Chronic obstructive pulmonary disease, unspecified; F20.9 Schizophrenia, unspecified; F32.A Depression, unspecified; D50.9 Iron deficiency anemia, unspecified; E11.9 Type 2 diabetes mellitus without complications; I10 Essential (primary) hypertension; N31.9 Neuromuscular dysfunction of bladder, unspecified; D75.839 Thrombocytosis, unspecified; F41.9 Anxiety disorder, unspecified; Z87.891 Personal history of nicotine dependence; Z87.440 Personal history of urinary (tract) infections; Z86.19 Personal history of other infectious and parasitic diseases; Z78.1 Physical restraint status; Z74.01 Bed confinement status
CPT/HCPCS: 36415; 36573; 71045; 80048; 80053; 80307; 80320; 80329; 81003; 82140; 82962; 83540; 83550; 83605; 83735; 84100; 84145; 84484; 85014; 85018; 85025; 85027; 86850; 86900; 86920; 99285; C1725; C1893; J0696; J1200; J1630; J1650; J2185; J2250; J3490; P9016; G0480